=== PATIENT | male | born 1980 | race Caucasian/White ===

== ENCOUNTER 2020-12-27 04:04 | Emergency (ER) | payer OTHER ==
[~2020-12-27] VITALS: Ht 177.8 cm; Wt 84.8 kg
[2020-12-27 04:14] VITALS: Ht 177.8 cm; Wt 84.8 kg
[2020-12-27 05:06] LABS: microscopic required? NO
[2020-12-27 05:21] LABS: CHLORIDE SERUM 103 mmol/L (98-107); POTASSIUM SERUM 4.3 mmol/L (3.5-5.1); SODIUM SERUM 139 mmol/L (136-145)
[2020-12-27 05:38] LABS: CARBON DIOXIDE 29.2 mmol/L (21-32); CREATININE SERUM 0.9 mg/dL (0.7-1.3); GFR1 > 60 mL/min; GLUCOSE SERUM 92 mg/dL (74-106); TOTAL PROTEIN, SERUM 8.4 g/dL (6.4-8.2)
[2020-12-27 05:39] LABS: ALBUMIN 4.1 g/dL (3.4-5.0); ALKALINE PHOSPHATASE 108 U/L (46-116); ALT/SGPT 39 U/L (16-63); AST/SGOT 31 U/L (15-37); BILIRUBIN TOTAL 0.49 mg/dL (0.20-1.00); CALCIUM 9.6 mg/dL (8.5-10.1)
[2020-12-27 05:40] LABS: BASOPHIL % 0.5 % (0.2-1.5); PLATELET COUNT 331 x10^3mcL (152-348); RED CELL DISTRIBUTION WIDTH 13.4 % (12.1-16.2)
[2020-12-27 06:07] LABS: AMPHETAMINE QUAL UR NONE DETECTED (See below)
[2020-12-27 06:15] LABS: urine erythrocyte NEGATIVE (NEGATIVE)
[2020-12-27 08:00] VITALS: BP 133/83
== END 2020-12-27 08:00 | disposition home or self-care (01) ==
LOC: ED 04:04
PROVIDERS: Emergency Medicine
DX: F10.10 Alcohol abuse, uncomplicated (principal); F14.10 Cocaine abuse, uncomplicated; F41.9 Anxiety disorder, unspecified
CPT/HCPCS: G0480; J2060; J7030